=== PATIENT | male | born 1985 | race African-American/Black ===

== ENCOUNTER 2018-07-31 18:49 | Inpatient (IN) | payer SELFPAY ==
[2018-07-31] MEDS ORDERED: Morphine 4 MG/ML VIAL ONE (19:35)
[2018-07-31] MEDS ORDERED: Ondansetron PF 4 MG/2 ML Vial ONE (19:35)
[2018-07-31] MEDS ORDERED: Adacel (T-DAP) 0.5 ML SYRINGE ONE (19:35)
--- NOTE | 2018-07-31 20:05 | RAD ---
Radiograph right hand 3 views: 07/31/2018 at 7:39 PM HISTORY: 32-year-old male status post right hand laceration injury FINDINGS: There is very large angulation of the fifth metacarpal head relative to the diaphysis. No other fract ure is visualized. No radiopaque foreign body. No dislocation. IMPRESSION: 1. Boxer's fracture at neck of fifth metacarpal of indeterminate age, probably subacute or chronic. R ecommend clinical correlation. There is no mention of blunt trauma in the history. 2. No radiopaque foreign body.
[2018-07-31] MEDS ORDERED: Morphine 4 MG/ML VIAL SLOW IVP PRN (21:26)
[2018-07-31] MEDS ORDERED: HYDROcodone/Acetaminophen 5/325 mg Tablet PO PRN (21:26)
[2018-07-31] MEDS ORDERED: traMADol HCl 50 MG TAB PO PRN (21:26)
[2018-07-31] MEDS ORDERED: Gentamicin 80 MG/2 ML VIAL ONE (21:26)
[2018-07-31] MEDS ORDERED: Ondansetron PF 4 MG/2 ML Vial IV PRN (21:26)
[2018-07-31] MEDS ORDERED: Promethazine HCl 25 MG/ML VIAL IM PRN (21:26)
[2018-07-31] MEDS ORDERED: RENALLY ADJUST ANTIBIOTICS FS SCH (21:30)
[2018-07-31] MEDS ORDERED: Ketorolac Tromethamine 30 MG/ML VIAL IVP PRN (21:41)
[2018-07-31] MEDS ORDERED: Ondansetron ODT 4 MG TAB ONE (22:12)
[2018-07-31] MEDS ORDERED: Sodium Chloride 0.9% 1,000 ML IV SCH (23:45)
[2018-07-31] MEDS: Ketorolac Tromethamine 30 MG/ML VIAL IVP SCH (23:57)
[2018-07-31] MEDS: Clindamycin/D5W 600 MG in Premix Bag 1 BAG IVPB SCH (23:57)
[2018-08-01 02:28] VITALS: BMI 22.4
[2018-08-01] MEDS: Ketorolac Tromethamine 30 MG/ML VIAL IVP SCH ×2 (05:47→12:00)
[2018-08-01] MEDS: Clindamycin/D5W 600 MG in Premix Bag 1 BAG IVPB SCH ×2 (05:48→13:35)
[2018-08-01] MEDS ORDERED: Bacitracin Zinc Ointment 30 gm TUBE ONE (06:36)
[2018-08-01] MEDS ORDERED: Betamet Acet/Betamet Na Ph 30 MG/5 ML VIAL ONE (06:36)
[2018-08-01] MEDS ORDERED: Bupivacaine PF 0.5% 30 ML VIAL ONE (06:36)
[2018-08-01] MEDS ORDERED: Morphine 2 MG/ML SYRINGE ONE (06:40)
[2018-08-01] MEDS ORDERED: Fentanyl 100 MCG/2 ML VIAL ONE ×2 (06:47→08:44)
[2018-08-01] MEDS ORDERED: Aspirin 81 mg Enteric Coated Tablet PO SCH (09:00)
[2018-08-01] MEDS ORDERED: TETANUS AND DIPHTHERIA TOX/PF 0.5 ML DISP.SYRIN IM SCH (09:00)
[2018-08-01] MEDS ORDERED: Vancomycin HCl 1 GM in Premix Bag 1 BAG IVPB SCH (11:00)
[2018-08-01] MEDS ORDERED: PROPOFOL 200 MG/20 ML VIAL ONE (13:27)
[2018-08-01] MEDS ORDERED: Lidocaine 1% PF 5 ML VIAL ONE (13:27)
[2018-08-01] MEDS ORDERED: Ondansetron PF 4 MG/2 ML Vial ONE (13:27)
[2018-08-01] MEDS ORDERED: PHENYLEPHRINE-NS 100 MCG/ML 10 ML SYRINGE ONE (13:27)
[2018-08-01] MEDS ORDERED: Ketorolac Tromethamine 30 MG/ML VIAL ONE (13:27)
--- NOTE | 2018-08-01 16:37 | OP ---
DATE OF PROCEDURE: 08/01/2018 PREOPERATIVE DIAGNOSES: 1. Right small finger open metacarpophalangeal joint 2-mm puncture wound. 2. Right small finger extensor digitorum communis laceration, complete. 3. Right small finger extensor digiti quinti laceration, complete. 4. Right small finger 4.0-cm wound. POSTOPERATIVE DIAGNOSES: 1. Right small finger open metacarpophalangeal joint 2-mm puncture wound. 2. Right small finger extensor digitorum communis laceration, complete. 3. Right small finger extensor digiti quinti laceration, complete. 4. Right small finger 4.0-cm wound. PROCEDURES PERFORMED: 1. Debridement of wound, right small finger. 2. Debridement of joint, right small finger metacarpophalangeal joint. 3. Closure of 4-cm wound. 4. Right small finger extensor digitorum communis repair, zone 5. 5. Right small finger extensor digiti minimi repair, zone 5. 6. Application of short-arm splint. 7. Retinacular repair, right small finger, zone 5. SPECIMEN REMOVED: None. TOURNIQUET TIME: 40 minutes. BLOOD LOSS: 10 mL. INDICATIONS FOR PROCEDURE: The patient with laceration while working approximately 12 hours before surgery began. On initial evaluation at 2130 hours the night before, the patient was drinking dark soda and just finished eating full dinner. Thus, we felt we could bring him to the operating room in 12 hours of injury in case the joint was opened, but he clearly had a tendon injury that was complete. DESCRIPTION OF PROCEDURE: After successful general LMA technique by [facility], the patient had the wound prepped and draped. Time-out was done appropriately. We exsanguinated the limb, inflated the tourniquet to 250 mmHg pressure, and extended laceration, 3 cm proximal and 1.5 cm distally. We first evaluated the ring finger where the exit incision showed with dissection, the laceration was down to, but not involved the tendon, and the extensor mechanism and retinaculum were intact. Next, we then dissected and found the retinaculum was lacerated completely, and when we explored the underlying joint capsule, there was 2 to 3 mm hole. Thus, the joint was opened. We extended this to a point where it was 6 mm at the joint, retracted it, and then irrigated with 5 L normal saline and Pulsavac pressure and after performing debridement using excisional technique with a combination of tenotomy scissors, Adsons, a Hocking blade, and the irrigation. The debridement was into and included the joint as well. A curette was used to debride the soft tissue. A small amount of debris particle was found in the subcutaneous tissue, but none found at the joint. We felt the joint was clean after debridement and irrigation using the excisional technique listed above. The patient then had the tendon edges debrided. We realigned the retinaculum on the radial side first and then repaired this with interrupted 4-0 Prolene. We used 4-0 Prolene buried [id number] technique to repair the central confluence of the extensor digitorum communis and extensor digiti minimi at just distal to the joint, and then repaired the ulnar retinaculum as well with the [id number] interrupted pattern 4-0 Prolene. Then, the MP joint had a small hyperextension added to, approximately 10 degrees. With flexion to 90 degrees, no gap formations, and we felt the repair was excellent. We deflated the tourniquet and obtained hemostasis. We did not close the joint capsule. The patient then had the incision edges debrided by trimming them with an 11 blade knife, 1 mm on both sides of the laceration, obtained hemostasis, and then closed the laceration with interrupted 4-0 nylon simple pattern. Bulky dressing was applied including bacitracin and Adaptic on the wound. A palmar and ulnar based splint including the ring and long finger with 0 degrees flexion at the MP joint was applied as well. Digit was pink. The patient left the operating room without evidence of anesthetic or operative complications. Job ID: [id number]
[2018-08-01 17:42] VITALS: BP 128/78; TEMP 97.9
== END 2018-08-01 14:19 | disposition home or self-care (01) | DRG 514 ==
LOC: ERS 18:49 → SURG B 21:09
PROVIDERS: ADMIT Orthopaedic Surgery Hand Surgery; ATTEND Orthopaedic Surgery Hand Surgery
PROC: 0KQC0ZZ Repair Right Hand Muscle, Open Approach (ICD-10-PCS; principal; 2018-08-01)
PROC: 0RBU0ZZ Excision of Right Metacarpophalangeal Joint, Open Approach (ICD-10-PCS; 2018-08-01)
DX: S66.326A Laceration of extensor muscle, fascia and tendon of right little finger at wrist and hand level, initial encounter (principal); S61.246A Puncture wound with foreign body of right little finger without damage to nail, initial encounter; F17.210 Nicotine dependence, cigarettes, uncomplicated; Y28.8XXA Contact with other sharp object, undetermined intent, initial encounter; Y92.9 Unspecified place or not applicable
CPT/HCPCS: 90715; J0131; J0690; J0702; J1580; J1885; J2270; J2405; J3010; J3370; J3490; Q0162; S0020

== ENCOUNTER 2019-03-06 07:12 | Emergency (ER) | payer SELFPAY | END 2019-03-06 07:36 | disposition home or self-care (01) | LOC: ERS 07:12 | DX: J11.1 Influenza due to unidentified influenza virus with other respiratory manifestations (principal); F17.210 Nicotine dependence, cigarettes, uncomplicated | CPT/HCPCS: 87804; 99283 ==

== ENCOUNTER 2023-02-08 05:30 | Emergency (ER) | payer OTHER, SELFPAY ==
[2023-02-08] MEDS ORDERED: Metoclopramide HCl 10 MG/2 ML VIAL ONE (06:08)
[2023-02-08] MEDS ORDERED: Ketorolac Tromethamine 30 MG/ML VIAL ONE (06:08)
[2023-02-08] MEDS ORDERED: Famotidine/PF 20 mg/2ml Vial ONE (06:09)
[2023-02-08 06:26] LABS: Hematocrit 44.9 % (42.0-52.0); Hemoglobin 15.2 g/dL (14.0-18.0); Manual Diff?? YES; Mean Corpuscular HGB CONC 33.9 g/dL (32.0-36.0); Mean Corpuscular Hemoglobin 30.2 pg (27.0-31.0); Mean Corpuscular Volume 89.1 fl (78.0-98.0); Mean Platelet Volume 9.4 fL (7.4-10.4); Platelet Count 243 10x3/uL (130-400); Red Blood Cell (RBC) Count 5.04 mill/uL (4.70-6.10); White Blood Cell (WBC) Count 6.2 10x3/uL (4.8-10.8)
[2023-02-08 06:27] LABS: Delete Auto Diff?? YES
[2023-02-08 06:43] LABS: Bacteria/HPF None Seen HPF (None Seen); Bilirubin Negative (Negative); Blood, Urine Negative (Negative); CAUTI Indications for Culture Pelvic or flank pain; Clarity Clear (Clear); Glucose, Urine (Dipstick) Normal (Negative); Ketone, Urine Negative (Negative); Leukocyte Negative Leu/uL (Negative); Nitrite Negative (Negative); Protein, Urine (Dipstick) Negative (Neg-Trace); RBC/HPF 0-3 HPF (0-3); Specific Gravity, Urine 1.021 (1.002-1.036); Squamous Epithelial None Seen HPF (0-3); Urobilinogen Normal mg/dL (Less than 2); WBC/HPF 0-3 HPF (0-3)
[2023-02-08 06:44] LABS: Urine Culture Reflex No No
[2023-02-08 06:50] LABS: ALT (SGPT) 24 U/L (8-55); AST (SGOT) 25 U/L (5-34); Albumin 3.7 g/dL (3.5-5.0); Alkaline Phosphatase 68 U/L (40-110); Anion Gap 11 mmol/L (10-20); BUN (Urea Nitrogen) 13 mg/dL (8.9-20.6); Bilirubin, Total 0.4 mg/dL (0.2-1.2); Calc. Creatinine Clearance 0 mL/min (70-130); Calcium 9.2 mg/dL (7.8-10.44); Carbon Dioxide 27 mmol/L (22-29); Chloride 104 mmol/L (98-107); Estimated GFR 92; Globulin 3.7 g/dL (2.4-3.5); Glucose 96 mg/dL (70-105); Lipase 32 U/L (8-78); Potassium 4.7 mmol/L (3.5-5.1); Protein, Total 7.4 g/dL (6.0-8.3); Sodium 137 mmol/L (136-145)
[2023-02-08 06:52] LABS: Band 1 % (5-11); CellaVision Operator ID lab.sh2; Eosinophils 1 % (0-10); Lymphocytes 53 % (21-51); Macrocytosis SLIGHT = 6-15 cells HPF (0-5); Monocytes 12 % (0-10); Neutrophil 33 % (42-75); Platelet Adequacy Comment Platelets Normal; Polychromasia SLIGHT = 2-3 cells HPF (0-2); Smudge Cells 34.7 %; Stomatocytes SLIGHT = 2-5 cells HPF (0-1); Total Cell Count 101
== END 2023-02-08 07:50 ==
LOC: EEVIPCON 05:30 → ERS 05:30
DX: R10.84 Generalized abdominal pain (principal); R11.2 Nausea with vomiting, unspecified; Z87.891 Personal history of nicotine dependence; Z79.01 Long term (current) use of anticoagulants
CPT/HCPCS: 36415; 74177; 80053; 81001; 83690; 85025; 93005; 96365; 96375; J1885; J2765; S0028